=== PATIENT | female | born 1995 | race Caucasian/White ===

== ENCOUNTER 2023-10-11 12:34 | Emergency (ER) | payer OTHER, SELFPAY ==
[2023-10-11 12:43] VITALS: BP 171/87
--- NOTE | 2023-10-11 13:44 | ED.GENMED ---
History of Present Illness
General
Chief Complaint: Dental Problem
Source: patient
Time Seen by Provider: 10/11/23 13:27
Travel History
Have you had any contact with someone who has COVID-19?: No
Do you have any symptoms of coronavirus? Fever > 100 degrees, chills, cough, shortness of breath, sore throat, loss of taste or smell, muscle aches, or headache?: No
History of Present Illness
History of Present Illness:
28-year-old female presenting emergency department for evaluation of left-sided lower jaw pain since this morning. Patient also noticed a fever of 101, took 2 doses of Tylenol prior to arrival. States she believes it helped with the fever however
did not do anything for the pain. Patient states no history of similar. No other concerns at this time and denies any trauma.
Past History
Past History
ED Past Medical History: Psychiatric (Anxiety)
ED Past Surgical History: Tonsilectomy (and adnoids) and Other (D&E 2018)
Patient has exhibited threatening behavior?: No
Social History
Tobacco: Non-smoker
Alcohol: Occasional
Drug: None
Personal: Single
Review of Systems
Review of Systems
All Other Systems: ROS reviewed and negative except as documented in HPI and ROS
Phy Exam
Physical Exam
Physical Exam:
GENERAL: Alert , in no apparent distress
EYE: conjunctiva clear
Head: Normocephalic atraumatic
NECK: Supple, no lymphadenopathy, no edema
ENT: mmm.No chipped or cracked teeth, no fluctuance, no masses, no trismus or stridor, TMs clear bilaterally
LUNGS: no acute respiratory distress
NEUROLOGICAL: Alert and oriented
SKIN: Warm and dry, skin intact.
MUSCULOSKELETAL: well perfused.
PSYCH: Normal and appropriate interaction.
Scores
Heart Failure Risk
Heart Failure Risk Score: Not Applicable
Heart Score for Chest Pain Patients
STEMI patient?: Not applicable
Withdrawal Assessment of Alcohol
Withdrawal Assessment Completed?: Not applicable
Course
Orders/Labs/Results
Orders:
Orders
10/11/23 13:42
Ibuprofen [Motrin] 600 mg PO NOW STA
Vital Signs
Initial and Last Documented VS:
Initial Vital Signs
Temp Pulse Resp BP Pulse Ox
98.1 F 103 22 171/87 98
10/11/23 12:43 10/11/23 12:43 10/11/23 12:43 10/11/23 12:43 10/11/23 12:43
Last Documented Vital Signs
Temp Pulse Resp BP Pulse Ox
98.1 F 103 22 171/87 98
10/11/23 12:43 10/11/23 12:43 10/11/23 12:43 10/11/23 12:43 10/11/23 12:43
Procedures
Dentalgia
Dental Block: In. [place]. Block
Bupivacaine 0.5%/Epi Dental cartridge administered?: No
Other: Inferior alveolar nerve block with 0.5% Sensorcaine used for anesthesia
MDM/Problems Addressed
Differential Diagnosis Includes:
Dental abscess, cellulitis, patient status post tonsillectomy so no concern for tonsillitis/strep throat, otitis media/otitis externa
MDM/Problems Addressed:
28-year-old female presenting the emergency department for evaluation of left-sided dental pain with fever of 101 earlier this morning. Visible exam is reassuring and there is no obvious signs of dental infection. Remainder of ENT exam is
unremarkable as well. Discussed management of symptoms with Motrin/ibuprofen. Considering antibiotic for dentalgia/dental infection. Patient also offered a dental block as noted above. She reports good relief of symptoms with this. Stable for
discharge home. Will provide with information for dentist to follow-up with.
*Pulse Oximetry
Patient hypoxic: no
*Critical Care Note
Total Time (30-74mins, 75-104mins- exclusive of procedures): Not Applicable
ED Attending Note
-
Portions of this chart may have been created with voice recognition software.� Occasional wrong word or��sound alike� substitutions may have occurred due to the inherent limitations of voice recognition software.
Discharge Plan
Departure
Patient Disposition: Home (Routine Discharge)
Date of Disposition: 10/11/23
Time of Disposition: 14:01
Patient with high blood pressure during this ER visit?: Yes
Discharge Problem:
Dentalgia
Instructions: Dental Pain (DC)
Prescriptions:
New
amoxicillin 500 mg tablet
500 mg PO BID 10 Days Qty: 20 0RF
No Action
prednisone 10 MG tablet
10 mg PO .TAPER Qty: 30 0RF
Rx Instructions:
Take 40mg daily x3days, 30mg daily x3days,
20mg daily x3days, 10mg daily x3days.
diazepam [Valium] 5 mg tablet
5 mg PO BID PRN (Reason: muscle spasm) Qty: 10 0RF
ibuprofen 600 mg tablet
600 mg PO Q8H PRN (Reason: Pain) Qty: 20 0RF
Referrals:
UNKNOWN - PT DOES,NOT KNOW [Family Provider] -
Vane Saleh DDS [Active] -
Interventions
Interventions:
*Risk Screen - Suicide Last Done: 10/11/23 12:46
*General Assessment Last Done: 10/11/23 12:46
*Neglect/Abuse Screening Last Done: 10/11/23 12:46
ED- Fall Risk Assessment Last Done: 10/11/23 14:13
*ED COVID-19 Vaccine History Last Done: 10/11/23 12:46
*Nursing Disposition Last Done: 10/11/23 14:13
Discharge Date and Time
Discharge Date/Time: 10/11/23 14:13
Print Language: GERMAN
[2023-10-11] MEDS: MOTRIN 600 MG PO (13:56)
== END 2023-10-11 14:13 | disposition home or self-care (01) ==
LOC: EMR 12:34
PROVIDERS: EMERGENCY PHYSICIAN Emergency Medicine
DX: K08.89 Other specified disorders of teeth and supporting structures (principal); R03.0 Elevated blood-pressure reading, without diagnosis of hypertension; F41.9 Anxiety disorder, unspecified
CPT/HCPCS: 99284; 64400

== ENCOUNTER 2024-07-05 10:07 | Emergency (ER) | payer OTHER, SELFPAY ==
[2024-07-05 10:35] VITALS: BP 155/103
[2024-07-05 11:01] LABS: % Basophils 0.9 % (0-2); % Eosinophils 2.1 % (0-6); % Immature Granulocytes 0.2 % (0-0.5); % Lymphocytes 34.6 % (20.5-51.1); % Monocytes 8.6 % (1.7-9.3); % Neutrophils 53.6 % (42.2-75.2); Absolute Basophils 0.1 10^3/uL (0-0.2); Absolute Eosinophils 0.1 10^3/uL (0-0.7); Absolute Lymphocytes 1.9 10^3/uL (1.2-3.4); Absolute Monocytes 0.5 10^3/uL (0.1-0.6); Absolute Neutrophils 2.9 10^3/uL (1.4-6.5); Hemoglobin 14.6 g/dL (12.0-16.0); Mean Corp Hgb Conc. 34.8 g/dL (33.0-37.0); Mean Corpuscular Hgb 32.2 pg (27.0-31.0); Mean Corpuscular Volume 92.7 fL (81.0-99.0); Mean Platelet Volume 9.8 fL (7.4-10.4); Nucleated Red Blood Cells % 0 %; Platelet Count 258 10^3/uL (130-400); Red Blood Cell Count 4.53 10^6/uL (4.20-5.40); Red Cell Dist. Width 12.3 % (11.5-14.5); White Blood Cell Count 5.4 10^3/uL (4.8-10.8)
[2024-07-05 11:15] LABS: HCG, Serum Qualitative Screen Negative
[2024-07-05 11:22] LABS: ALT (SGPT) 19 U/L (0-35); AST (SGOT) 32 U/L (14-36); Albumin 4.9 g/dl (3.5-5.0); Alkaline Phosphatase 76 U/L (38-126); Blood Urea Nitrogen 9 mg/dl (7-17); Calcium 9.9 mg/dl (8.4-10.2); Carbon Dioxide 24 mmol/L (22-30); Chloride 104 mmol/L (98-107); Glucose 98 mg/dl (70-99); Potassium 4.3 mmol/L (3.5-5.1); Sodium 137 mmol/L (135-145); Total Bilirubin 0.8 mg/dl (0.2-1.3); Total Protein 7.7 g/dl (6.3-8.2); eGFR > 60.00
[2024-07-05 12:06] VITALS: BMI 28.7
[2024-07-05 12:10] VITALS: BP 156/97
--- NOTE | 2024-07-05 12:13 | ED.GENMED ---
History of Present Illness
General
Chief Complaint: Blood Pressure Problem
Source: patient
Exam Limitations: none
Time Seen by Provider: 07/05/24 12:00
Nursing documentation reviewed up to this point in time: agreed with
History of Present Illness
History of Present Illness:
Patient is a 28-year-old female who presents to the ER complaining of elevated blood pressure. Patient reports for the past several days her blood pressure has been elevated. She had an episode of blurry vision on Thursday which made her check her
blood pressure. Her blood pressure on study was 166/82. When she noticed her blood pressure was very elevated she reports she is very anxious and she had some tingling in her hands.
She took it again on Thursday blood pressure was still elevated. She went to the pharmacy again today and has had persistent elevated blood pressure. She does report that she has had issues with palpitations off and on for the past several
months. She reports she was post to get blood work done for her thyroid but never did. She is presently in between family doctors which is why she presented here to the ER. Currently she does feel anxious over having an elevated blood pressure.
She currently denies any palpitations. She denies any headache. No blurred vision presently. Denies any chest pain shortness of breath.
Past History
Past History
ED Past Medical History: Psychiatric (Anxiety)
ED Past Surgical History: Tonsilectomy (and adnoids) and Other (D&E 2018)
Patient has exhibited threatening behavior?: No
Social History
Tobacco: Non-smoker
Alcohol: Occasional
Drug: None
Personal: Single
Living: other (college at [employer],)
Review of Systems
Review of Systems
Allergies reviewed?: Yes
All Other Systems: ROS reviewed and negative except as documented in HPI and ROS
Constitutional: Reports no symptoms
Respiratory: Reports no symptoms
Cardiac: Reports palpitations; Denies chest pain, diaphoresis or syncope
ABD/GI: Reports no symptoms
: Reports no symptoms
Musculoskeletal: Reports no symptoms
Skin: Reports no symptoms
Neurological: Reports no symptoms; Denies dizzy or headache
Psychiatric: Reports no symptoms
Phy Exam
General Physical Exam
General Presentation: no apparent distress
General age: appears stated age
General Skin: warm and dry
General Habitus: normal
General Mental: alert
General Hydration: appears well hydrated
Cardiovascular Exam
Cardiovascular Exam: regular rate/rhythm, no murmur and normal peripheral pulses
Pulmonary Exam
Pulmonary Exam: lungs clear and no respiratory distress
Neurological Exam
Neurological Exam: alert and oriented x3
Musculoskeletal Exam
Musculoskeletal Exam: full ROM
Skin Exam
Skin Exam: normal color
Psychiatric Exam
Psychiatric Exam: normal mood/affect
Course
Orders/Labs/Results
Orders:
Orders
07/05/24 10:38
EKG [Electrocardiogram (*1)] Urgent
Reason for Study: Palpitations
Test Result ONCE
07/05/24 10:39
EKG- Treatment ONCE
07/05/24 10:45
CBC/With Diff [Complete Blood Count/With Diff] Urgent
Comprehensive Metabolic Panel Urgent
HCG, Serum Qualitative Screen Urgent
TSH Reflex To Free T4 Urgent
Comment: ADD ON
07/05/24 12:27
Add On- LAB Urgent
Tests Added?: tsh w/reflexive t4
Abnormal Lab Results
07/05/24
10:45
MCH 32.2 H pg
(27.0-31.0)
07/05/24 10:45
07/05/24 10:45
Vital Signs
Initial and Last Documented VS:
Initial Vital Signs
Temp Pulse Resp BP Pulse Ox
97.8 F 99 16 155/103 100
07/05/24 10:35 07/05/24 10:35 07/05/24 10:35 07/05/24 10:35 07/05/24 10:35
Last Documented Vital Signs
Temp Pulse Resp BP Pulse Ox
97.8 F 82 23 138/84 99
07/05/24 10:35 07/05/24 13:30 07/05/24 13:30 07/05/24 13:00 07/05/24 13:30
MDM/Problems Addressed
MDM/Problems Addressed:
Patient is a 28-year-old female who presented with elevated blood pressure had some blurry vision. She presents awake alert no acute distress very anxious about her blood pressure. She currently does not have a family doctor. She has no
associated chest pain or headache. Her labs are unremarkable including normal kidney function. She had palpitations previously and was supposed to have her TSH checked and never did.
her TSH is normal. She has no acute abnormalities on exam.
Patient's blood pressure minimally elevated however very nontoxic-appearing patient's blood pressure very minimally elevated and stable for discharge home. Discussed close outpatient follow-up with family practice residency.
*Pulse Oximetry
Patient hypoxic: no
*EKG
Interpreted by ED Provider?: Yes
Interpretation: normal
Comparison EKG: no changes
Heart Rate: 79
Rate: normal
Rhythm: sinus
Ischemia: no ischemia
*Critical Care Note
Total Time (30-74mins, 75-104mins- exclusive of procedures): Not Applicable
ED Attending Note
-
Portions of this chart may have been created with voice recognition software.� Occasional wrong word or��sound alike� substitutions may have occurred due to the inherent limitations of voice recognition software.
Discharge Plan
Departure
Patient Disposition: Home (Routine Discharge)
Date of Disposition: 07/05/24
Time of Disposition: 15:18
Patient with high blood pressure during this ER visit?: Yes
Condition: Fair
Covid-19: Not Applicable
Discharge Problem:
elevated blood pressure
Instructions: High Blood Pressure (DC), BLOOD PRESSURE
Prescriptions:
No Action
prednisone 10 MG tablet
10 mg PO .TAPER Qty: 30 0RF
Rx Instructions:
Take 40mg daily x3days, 30mg daily x3days,
20mg daily x3days, 10mg daily x3days.
diazepam [Valium] 5 mg tablet
5 mg PO BID PRN (Reason: muscle spasm) Qty: 10 0RF
ibuprofen 600 mg tablet
600 mg PO Q8H PRN (Reason: Pain) Qty: 20 0RF
amoxicillin 500 mg tablet
500 mg PO BID 10 Days Qty: 20 0RF
Referrals:
[facility] [Provider Group]
[facility] [Outside]
NONE,* [Family Provider] -
Activity Restrictions/Additional Instructions:
As discussed please follow-up with family practice clinic for reevaluation of your symptoms and elevated blood pressure. Your labs including your thyroid were all normal.
Return if any worsening of symptoms
Please follow a low-sodium diet
Interventions
Interventions:
*Risk Screen - Suicide Last Done: 07/05/24 10:35
*General Assessment Last Done: 07/05/24 12:07
*Neglect/Abuse Screening Last Done: 07/05/24 10:35
*ED- Fall Risk Assessment Last Done: 07/05/24 12:07
*ED COVID-19 Vaccine History Last Done: 07/05/24 12:07
*Nursing Disposition Last Done: 07/05/24 15:26
ED- Cardiac Assessment Last Done: 07/05/24 12:07
ED- Neurological Assessment Last Done: 07/05/24 12:07
ED- Pulmonary Assessment Last Done: 07/05/24 12:07
Discharge Date and Time
Print Language: LATVIAN
[2024-07-05 13:00] VITALS: BP 138/84
[2024-07-05 15:16] LABS: TSH Reflex To Free T4 1.27 uIU/ml (0.47-4.68)
[2024-07-05 15:26] VITALS: BP 132/82
== END 2024-07-05 15:27 | disposition home or self-care (01) ==
LOC: EMR 10:07
PROVIDERS: Emergency Medicine; EMERGENCY PHYSICIAN Emergency Medicine
DX: R03.0 Elevated blood-pressure reading, without diagnosis of hypertension (principal); H53.8 Other visual disturbances; R00.2 Palpitations; R42 Dizziness and giddiness; R20.2 Paresthesia of skin; F41.9 Anxiety disorder, unspecified; Z91.018 Allergy to other foods
CPT/HCPCS: 99283; 80053; 84443; 84703; 85025; 93005

== ENCOUNTER → 2024-10-15 10:16 | Outpatient (REF) | payer OTHER, SELFPAY | LOC: RCS 10:16 | PROVIDERS: ATTENDING PHYSICIAN Hospitalist | DX: R00.2 Palpitations (principal) | CPT/HCPCS: 93225; 93226 ==